=== PATIENT | female | born 1985 | race Caucasian/White ===

== ENCOUNTER 2019-07-19 17:33 | Emergency (ER) | payer OTHER ==
[~2019-07-19] VITALS: Ht 157.5 cm; Wt 68.5 kg
[2019-07-19 17:55] LABS: Source, Urine Clean Catch
[2019-07-19 17:59] LABS: Bilirubin, Urine Neg (Neg); Blood, Urine 2+ (Neg); Glucose Qualitative, Urine Neg (Neg); Ketones, Urine Neg (Neg); Leukocyte Esterase, Urine 2+ (Neg); Nitrite, Urine Neg (Neg); Protein, Urine Neg (Neg); Specific Gravity, Urine 1.025 (1.003-1.022); Urobilinogen, Urine NORM (Normal)
[2019-07-19 18:14] LABS: Appearance, Urine Clear (Clear); Color, Urine Yellow (P-Yellow)
[2019-07-19 18:15] LABS: Bacteria Many /hpf; Squamous Epithelial Cells Mod /hpf (Few)
[2019-07-19] MEDS ORDERED: Pyridium200 MG PO (18:49)
[2019-07-19] MEDS ORDERED: CEPH500 PO (18:49)
== END 2019-07-19 18:56 | disposition home or self-care (01) ==
LOC: ER 17:33
PROVIDERS: Emergency Medicine
DX: N39.0 Urinary tract infection, site not specified (principal)
CPT/HCPCS: 81001; 81025; 87086; 99283

== ENCOUNTER 2019-09-11 18:57 | Emergency (ER) | payer OTHER ==
[~2019-09-11] VITALS: Ht 157.5 cm; Wt 68.0 kg
[~2019-09-11 18:57] MED LIST: CEPH500 PO; Pyridium200 MG PO
[2019-09-13 03:07] LABS: HCV ANTIBODY 0.2 (0.0-0.9)
[2019-09-13 04:07] LABS: HIV SCREEN 4TH GENERATION WRFX Non Reactive (Non Reactive)
== END 2019-09-11 19:55 | disposition home or self-care (01) ==
LOC: ER 18:57
PROVIDERS: Physician Assistant
DX: Z77.21 Contact with and (suspected) exposure to potentially hazardous body fluids (principal)
CPT/HCPCS: 36415; 84460; 86317; 86803; 87389; 99283

== ENCOUNTER 2019-11-18 23:07 | Emergency (ER) | payer OTHER ==
[~2019-11-18] VITALS: Ht 157.5 cm; Wt 74.8 kg
[2019-11-18 23:27] LABS: Source, Urine Clean Catch
[2019-11-18 23:32] LABS: Appearance, Urine Hazy (Clear); Bilirubin, Urine Neg (Neg); Blood, Urine 5+ (Neg); Color, Urine Yellow (P-Yellow); Glucose Qualitative, Urine Neg (Neg); Ketones, Urine 1+ (Neg); Leukocyte Esterase, Urine 3+ (Neg); Nitrite, Urine Pos (Neg); Protein, Urine 2+ (Neg); Urobilinogen, Urine NORM (Normal)
[2019-11-18 23:37] LABS: Bacteria Many /hpf; Mucus Light (0-Heavy); Squamous Epithelial Cells Few /hpf (Few); White Blood Cells, Urine TNTC /hpf (0-5)
[2019-11-19] MEDS ORDERED: Bactrim Ds Tab1 EACH PO (00:05)
[2019-11-19] MEDS ORDERED: Pyridium200 MG PO (00:05)
== END 2019-11-19 00:20 | disposition home or self-care (01) ==
LOC: ER 23:07
PROVIDERS: Emergency Medicine
DX: N39.0 Urinary tract infection, site not specified (principal)
CPT/HCPCS: 81001; 81025; 87077; 87086; 87186; 99283; A9270-GY

== ENCOUNTER 2020-10-18 09:17 | Emergency (ER) | payer BC ==
[~2020-10-18] VITALS: Ht 157.5 cm; Wt 78.5 kg
[~2020-10-18 09:17] MED LIST changes: +Bactrim Ds Tab1 EACH PO
== END 2020-10-18 11:46 | disposition home or self-care (01) ==
LOC: ER 09:17
DX: J20.8 Acute bronchitis due to other specified organisms (principal); B97.89 Other viral agents as the cause of diseases classified elsewhere
CPT/HCPCS: 71045; 94640; 99283-25

== ENCOUNTER 2021-07-23 10:38 | Emergency (ER) | payer OTHER ==
[~2021-07-23] VITALS: Ht 157.5 cm; Wt 81.7 kg
[2021-07-23] MEDS ORDERED: ONDA4ODT MM (10:57)
== END 2021-07-23 11:18 | disposition home or self-care (01) ==
LOC: ER 10:38
DX: U07.1 COVID-19 (principal)
CPT/HCPCS: 99284; A9270

== ENCOUNTER → 2021-12-22 | Outpatient (CLI) | payer OTHER ==
[~2021-12-22] MED LIST changes: +ONDA4ODT MM
== END ==
LOC: LAB SHORT 18:02
DX: R30.0 Dysuria (principal)
CPT/HCPCS: 87086

== ENCOUNTER → 2022-05-04 | Outpatient (CLI) | payer OTHER ==
[2022-05-06 08:31] LABS: Candida species (DNA Probe) Negative (NEGATIVE); G. vaginalis (DNA Probe) Negative (NEGATIVE); T. vaginalis (DNA Probe) Negative (NEGATIVE)
[2022-05-09 15:08] LABS: CHLAMYDIA BY NAA Negative (Negative); GONOCOCCUS BY NAA Negative (Negative); HPV 16 Negative (Negative); HPV 18 Negative (Negative); HPV OTHER HR TYPES Negative (Negative); TRICH VAG BY NAA Negative (Negative)
== END | disposition home or self-care (01) ==
LOC: LAB 16:30 → LAB SHORT 16:30
PROVIDERS: Nurse Practitioner Family
DX: Z01.419 Encounter for gynecological examination (general) (routine) without abnormal findings (principal)
CPT/HCPCS: 87480; 87491; 87510; 87591; 87624; 87660; 87661; 88142

== ENCOUNTER 2023-09-18 17:23 | Emergency (ER) | payer OTHER ==
[~2023-09-18] VITALS: Ht 157.5 cm; Wt 86.6 kg
[2023-09-18 17:35] VITALS: BP 167/95
[2023-09-18 18:04] LABS: Source, Urine Clean Catch
[2023-09-18 18:09] LABS: Blood, Urine 2+ (Neg); Glucose Qualitative, Urine Neg (Neg); Ketones, Urine Neg (Neg); Leukocyte Esterase, Urine 2+ (Neg); Nitrite, Urine Pos (Neg); Protein, Urine 1+ (Neg); Urobilinogen, Urine 2+ (Normal)
[2023-09-18 18:22] LABS: Appearance, Urine Hazy (Clear); Bilirubin, Urine 2+ (Neg); Color, Urine Orange (P-Yellow)
[2023-09-18 18:35] LABS: Hyaline Casts 0-2 /lpf (0-2)
[2023-09-18 18:36] LABS: Bacteria Mod /hpf; Squamous Epithelial Cells Few /hpf (Few)
[2023-09-18] MEDS ORDERED: CEPH500 PO (19:46)
[2023-09-18] MEDS ORDERED: PHENA200 PO (19:46)
== END 2023-09-18 19:57 | disposition home or self-care (01) ==
LOC: ER 17:23
PROVIDERS: Student in an Organized Health Care Education/Training Program
DX: N39.0 Urinary tract infection, site not specified (principal)
CPT/HCPCS: 81001; 81025; 87086; 96372; 99283-25; A9270; J1885